=== PATIENT | male | born 1970 | race Caucasian/White ===

== ENCOUNTER 2018-04-19 17:41 | Emergency (ER) | payer OTHER ==
--- NOTE | 2018-04-19 19:46 | ED PDOC ---
HPI: Back Time Seen by Provider: 04/19/18 18:02 Chief Complaint (Nursing): Back Pain Chief Complaint (Provider): Back Pain History Per: Patient History/Exam Limitations: no limitations Onset/Duration Of Symptoms: Days (X3) Current Symptoms Are (Timing): Still Present Quality Of Discomfort: Unable To Describe Additional Complaint(s): 47 year old male with no past medical history presents to the ED complaining of low back pain that worsens with movement, turning, and heavy lifting, ongoing since Monday. 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 Additionally, patient reports he has been feeling "feverish" at home associated with a headache, onset three days ago. Otherwise: (-) trauma, (-) injury, (-) urinary symptoms, (-) URI symptoms, (-) sore throat, (-) abdominal pain, (-) vomiting, (-) diarrhea. PMD: None Provided Past Medical History Reviewed: Historical Data, Nursing Documentation, Vital Signs Vital Signs: Last Vital Signs Temp 99.1 F 04/19/18 17:45 Pulse 119 H 04/19/18 17:45 Resp 20 04/19/18 17:45 BP 137/100 H 04/19/18 17:45 Pulse Ox 98 04/19/18 17:45 - Medical History PMH: No Chronic Diseases Denies: Chronic Kidney Disease - Surgical History Surgical History: No Surg Hx - Family History Family History: States: Diabetes - Social History Current smoker - smoking cessation education provided: No Alcohol: None Drugs: Denies - Immunization History Hx Tetanus Toxoid Vaccination: No Hx Influenza Vaccination: No Hx Pneumococcal Vaccination: No - Home Medications Home Medications: Ambulatory Orders Medication Instructions Recorded Acetaminophen/Oxycodone Hydr 1 tab PO Q4H #0 tab 08/06/15 [Percocet 10/325 mg Tab] Cephalexin [Keflex] 500 mg PO TID #0 cap 08/06/15 - Allergies Allergies/Adverse Reactions: Allergies Allergy/AdvReac Type Severity Reaction Status Date / Time No Known Allergies Allergy Verified 08/04/15 15:40 Review of Systems ROS Statement: Except As Marked, All Systems Reviewed And Found Negative Constitutional: Positive for: Fever ENT: Negative for: Throat Pain Gastrointestinal: Negative for: Vomiting, Abdominal Pain, Diarrhea Musculoskeletal: Positive for: Back Pain (low) Neurological: Positive for: Headache Physical Exam - Reviewed Nursing Documentation Reviewed: Yes Vital Signs Reviewed: Yes - Physical Exam Comments: GENERAL APPEARANCE: Patient is awake, alert, oriented x 3, in no painful distress. Sitting comfortably. SKIN: Warm, dry; (-) cyanosis. EYES: (-) conjunctival pallor. ENMT: Mucous membranes moist. NECK: (-) tenderness, (-) stiffness, (-) lymphadenopathy. CHEST AND RESPIRATORY: (-) rales, (-) rhonchi, (-) wheezes; breath sounds equal bilaterally. HEART AND CARDIOVASCULAR: (-) irregularity; (-) murmur, (-) gallop. ABDOMEN AND GI: Soft; (-) tenderness; (-) palpable mass. (-) CVA tenderness. BACK: (-) paralumbar tenderness, (-) spasm, (-) direct bony tenderness, (-) deformity. Straight leg raising (-) bilaterally. EXTREMITIES: (-) deformity. Distal pulses good bilaterally. NEURO AND PSYCH: Mental status as above. Intact sensation bilaterally; normal strength in extension of the knees, plantar and dorsiflexion of the toes. DTRs symmetric. - ECG O2 Sat by Pulse Oximetry: 98 (RA) Medical Decision Making Medical Decision Making: Time: 1837 Plan: -- ED Urine Dipstick -- Flexeril 10 mg PO -- Toradol 60 mg IM UA +blood, no evidence of UTI. Labs, US renal ordered. Case endorsed to EMILIANA George at 1999 pending labs and US. Scribe Attestation: Documented by Skylar Negron, acting as a scribe for Pearl Clement PA-C. Provider Scribe Attestation: All medical record entries made by the Scribe were at my direction and personally dictated by me. I have reviewed the chart and agree that the record accurately reflects my personal performance of the history, physical exam, medical decision making, and the department course for this patient. I have also personally directed, reviewed, and agree with the discharge instructions and disposition. Disposition - Clinical Impression Clinical Impression: Low back pain - Patient ED Disposition Is Patient to be Admitted: Transfer of Care Counseled Patient/Family Regarding: Studies Performed, Diagnosis - Disposition Disposition: Transfer of Care Disposition Time: 20:00 Condition: STABLE Forms: [facility] (Greek)
[2018-04-19 19:56] VITALS: RESP 16
[2018-04-19] MEDS ORDERED: Sodium Chloride 0.9% 1,000 ML IV STA (20:16)
--- NOTE | 2018-04-19 20:16 | ED PDOC ---
- Laboratory Results Result Diagrams: 04/19/18 20:25 04/19/18 20:25 - ECG O2 Sat by Pulse Oximetry: 98 (RA) - Progress ED Course And Treament: Case endorsed to health science writer from [facility] pending re-eval Patient with large blood in urine On re-eval, states mild pain still present. As per daughter, one episode of vomiting yesterday and tactile fevers. Will check labs/CT renal protocol and give IV fluids CT Abdomen and Pelvis Without Intravenous Contrast EXAM DATE/TIME: 04/19/2018 8:12 PM CLINICAL HISTORY: 47 years old, male; Pain; Other: Back pain; Additional info: Back pain, hematuria TECHNIQUE: Axial computed tomography images of the abdomen and pelvis without intravenous contrast. All CT scans at this facility use at least one of these dose optimization techniques: automated exposure control; mA and/or kV adjustment per patient size (includes targeted exams where dose is matched to clinical indication); or iterative reconstruction. Coronal and sagittal reformatted images were created and reviewed. COMPARISON: There are no prior studies for comparison. FINDINGS: Lower thorax: Heart size is normal. Lung bases are clear ABDOMEN: Liver: unremarkable Gallbladder and bile ducts: unremarkable Pancreas: unremarkable Spleen: unremarkable Adrenals: unremarkable Kidneys and ureters: Left kidney is severely atrophic. Residual left kidney measures approximately 2.8 cm in length. There is no pelvocaliectasis or ureterectasis. Right kidney measures approximately 12 cm in length. Renal contours are normal. There are no renal or ureteral stones. There is no pelvocaliectasis or ureterectasis. Stomach and bowel: Stomach is incompletely distended. Rotation is normal. Small bowel is mildly distended with fluid and air. There is no obstruction. Ileocecal region is unremarkable. Air-fluid levels in the colon. There is scattered diverticulosis. PELVIS: Appendix: See stomach and bowel Bladder: unremarkable Reproductive: Seminal vesicles and prostate are unremarkable. ABDOMEN and PELVIS: Intraperitoneal space: There is no free air or free fluid. There is no free air or free fluid. Bones/joints: There are degenerative changes in the osseus structures. Soft tissues: There is a small fat containing umbilical hernia. Vasculature: Vascular structures are unremarkable. Lymph nodes: There is shotty adenopathy. IMPRESSION: Normal right kidney, no renal or ureteral stones or hydronephrosis; severely atrophic left kidney, no stones or dilatation; possible mild ileus, no obstruction Patient/family educated on findings, discharged with rx flexeril, naproxen, lidoderm patches Advised follow up PMD 2-3 days. warm compresses Return precautions given Disposition - Clinical Impression Clinical Impression: Low back pain, Atrophy of left kidney - POA Present On Arrival: None - Disposition Referrals: [facility] [Outside] Disposition: Routine/Home Disposition Time: 22:01 Condition: STABLE Prescriptions: Cyclobenzaprine [Cyclobenzaprine HCl] 10 mg PO BID PRN #14 tab PRN Reason: Muscle Spasm Lidocaine 5% [Lidoderm] 1 patch TOP DAILY #7 patch Naproxen [Naprosyn] 500 mg PO Q12 PRN #14 tablet PRN Reason: Pain, Moderate (4-7) Instructions: Low Back Pain in Adults Print Language: JAMAICAN
[2018-04-19 20:38] LABS: BASO % 0.2 % (0.0-2.0); EOS % 0.1 % (0.0-4.0); HEMOGLOBIN 15.5 g/dL (12.0-18.0); LYMPH # 1.1 K/uL (1.0-4.3); LYMPH % 15.6 % (20.0-40.0); MEAN CELL VOLUME 79.8 fl (80.0-94.0); MEAN CORPUSCULAR HEMOGLOBIN 26.7 pg (27.0-31.0); MEAN CORPUSCULAR HGB CONC 33.4 g/dL (33.0-37.0); MEAN PLATELET VOLUME 8.9 fl (7.2-11.7); MONO # 0.9 K/uL (0.0-0.8); MONO % 13.2 % (0.0-10.0); NEUT # 4.9 K/uL (1.8-7.0); NEUT % 70.9 % (50.0-75.0); RBC 5.81 Mil/uL (4.40-5.90); RED CELL DISTRIBUTION WIDTH 13.7 % (11.5-14.5); WHITE BLOOD COUNT 6.9 K/uL (4.8-10.8)
[2018-04-19 20:39] LABS: SQUAMOUS EPITHIAL < 1 /hpf (0-5); URINE BILIRUBIN NEGATIVE (NEGATIVE); URINE BLOOD MODERATE (NEGATIVE); URINE CLARITY CLEAR (Clear); URINE COLOR YELLOW (YELLOW); URINE GLUCOSE (UA) NEG (Normal); URINE LEUKOCYTE ESTERASE NEG Leu/uL (Negative); URINE PROTEIN >=500 mg/dL (NEGATIVE); URINE UROBILINOGEN 0.2-1.0 mg/dL (0.2-1.0)
[2018-04-19 20:48] LABS: ALBUMIN 4.3 g/dL (3.5-5.0)
[2018-04-19 20:49] LABS: BLOOD UREA NITROGEN 15 mg/dl (9-20); CALCIUM 8.6 mg/dL (8.4-10.2); GFR AFRICAN-AMERICAN > 60; GFR NON-AFRICAN AMERICAN 50
[2018-04-19 20:50] LABS: ALB/GLOB RATIO 1.4 (1.0-2.1); ALT/SGPT 42 U/L (21-72); AST/SGOT 39 U/L (17-59); LIPASE 269 U/L (23-300)
--- NOTE | 2018-04-19 21:28 | CT ---
EXAM: CT Abdomen and Pelvis Without Intravenous Contrast EXAM DATE/TIME: 04/19/2018 8:12 PM CLINICAL HISTORY: 47 years old, male; Pain; Other: Back pain; Additional info: Back pain, hematuria TECHNIQUE: Axial computed tomography images of the abdomen and pelvis without intravenous contrast. All CT scans at this facility use at least one of these dose optimization techniques: automated exposure control; mA and/or kV adjustment per patient size (includes targeted exams where dose is matched to clinical indication); or iterative reconstruction. Coronal and sagittal reformatted images were created and reviewed. COMPARISON: There are no prior studies for comparison. FINDINGS: Lower thorax: Heart size is normal. Lung bases are clear ABDOMEN: Liver: unremarkable Gallbladder and bile ducts: unremarkable Pancreas: unremarkable Spleen: unremarkable Adrenals: unremarkable Kidneys and ureters: Left kidney is severely atrophic. Residual left kidney measures approximately 2.8 cm in length. There is no pelvocaliectasis or ureterectasis. Right kidney measures approximately 12 cm in length. Renal contours are normal. There are no renal or ureteral stones. There is no pelvocaliectasis or ureterectasis. Stomach and bowel: Stomach is incompletely distended. Rotation is normal. Small bowel is mildly distended with fluid and air. There is no obstruction. Ileocecal region is unremarkable. Air-fluid levels in the colon. There is scattered diverticulosis. PELVIS: Appendix: See stomach and bowel Bladder: unremarkable Reproductive: Seminal vesicles and prostate are unremarkable. ABDOMEN and PELVIS: Intraperitoneal space: There is no free air or free fluid. There is no free air or free fluid. Bones/joints: There are degenerative changes in the osseus structures. Soft tissues: There is a small fat containing umbilical hernia. Vasculature: Vascular structures are unremarkable. Lymph nodes: There is shotty adenopathy. IMPRESSION: Normal right kidney, no renal or ureteral stones or hydronephrosis; severely atrophic left kidney, no stones or dilatation; possible mild ileus, no obstruction Additional nonemergent findings as described above.
[2018-04-19 21:57] VITALS: BP 124/83; PULSE 77; TEMP 99
[2018-04-19 22:03] VITALS: O2SAT 98
== END 2018-04-19 22:34 | disposition home or self-care (01) ==
LOC: H.ER 17:41
DX: M54.5 Low back pain (principal); N26.1 Atrophy of kidney (terminal)
CPT/HCPCS: 74176; 80053; 81003; 83690; 85025; 96372; 99284; J1885; J7030